=== PATIENT | female | born 1970 | race Caucasian/White ===

== ENCOUNTER → 2025-08-07 09:50 | Outpatient (REF) | payer OTHER, SELFPAY | LOC: RCS 09:50 | PROVIDERS: ATTENDING PHYSICIAN Internal Medicine Cardiovascular Disease; FAMILY PHYSICIAN Nurse Practitioner Family | DX: R06.02 Shortness of breath (principal); E78.00 Pure hypercholesterolemia, unspecified; I10 Essential (primary) hypertension | CPT/HCPCS: 93017; 93350 ==